=== PATIENT | female | born 1965 | race Caucasian/White ===

== ENCOUNTER 2019-03-04 04:33 | Emergency (ER) | payer BC ==
[~2019-03-04] VITALS: Ht 154.9 cm; Wt 90.7 kg
[~2019-03-04 04:33] MED LIST: CITA10S PO; GLIP5 PO; LANS15EC PO; LEVSOD88 PO; Lisinopril2.5 MG; SITA25T2 PO; Ultram50 MG PO; XARELTO20 MG PO; Zofran Odt4 MG SL
[2019-03-04 04:54] LABS: BASOPHILS ABSOLUTE AUTO 0.08 K/mm3 (0.00-0.23); BASOPHILS PERCENT AUTO 0 % (0-2); EOSINOPHILS ABSOLUTE AUTO 6.03 K/mm3 (0.00-0.68); EOSINOPHILS PERCENT AUTO 25 % (0-6); Hemoglobin 12.5 g/dL (11.5-16.0); IMMATURE GRAN ABSOLUTE AUTO 0.34 K/mm3 (0.00-0.10); IMMATURE GRAN PERCENT AUTO 1 % (0-1); LYMPHOCYTES ABSOLUTE AUTO 6.29 K/mm3 (0.84-5.20); LYMPHOCYTES PERCENT AUTO 26 % (21-46); MONOCYTES ABSOLUTE AUTO 0.79 K/mm3 (0.16-1.47); MONOCYTES PERCENT AUTO 3 % (4-13); Mean Corpuscular HGB 25.9 pg (26.0-34.0); Mean Corpuscular HGB Conc 31.3 g/dL (31.5-36.5); Mean Corpuscular Volume 83 fL (80-100); Mean Platelet Volume 9.3 fL (9.1-12.4); NEUTROPHILS ABSOLUTE AUTO 10.37 K/mm3 (1.96-9.15); NEUTROPHILS PERCENT AUTO 44 % (41-73); Platelet Count 495 K/mm3 (150-400); RDW Standard Deviation 47.8 fL (35.1-46.3); Red Blood Cell Count 4.83 M/mm3 (3.80-5.20)
[2019-03-04 05:14] LABS: Alanine Aminotransfer (ALT/SGP 25 U/L (12-78); Albumin, Blood 3.4 g/dL (3.4-5.0); Albumin/Globulin Ratio 0.7 (0.8-1.8); Alk Phos 141 U/L (50-136); Anion Gap 9 mmol/L (6-16); Aspartate Aminotrans (AST/SGOT 21 U/L (12-37); Bilirubin, Total 0.2 mg/dL (0.1-1.0); Blood Urea Nitrogen 18 mg/dL (8-24); Bun/Creatinine Ratio 21.5 (12.0-20.0); CO2, Blood 25 mmol/L (21-32); Calcium, Blood 9.4 mg/dL (8.5-10.1); Chloride, Blood 104 mmol/L (98-108); Creatinine, Blood 0.84 mg/dL (0.40-1.00); Globulin, Blood 4.7 g/dL (2.2-4.0); Glomerular Filtration Rate >60 (60-); Glucose, Blood 189 mg/dL (70-99); Magnesium, Blood 1.8 mg/dL (1.6-2.4); Potassium, Blood 3.7 mmol/L (3.5-5.5); Sodium, Blood 138 mmol/L (136-145); Total Protein, Blood 8.1 g/dL (6.4-8.2); Troponin I <0.015 ng/mL (0.000-0.040)
[2019-03-04 06:43] LABS: Source, Urine Clean Catch
[2019-03-04 06:45] LABS: Bilirubin, Urine Neg (Neg); Blood, Urine 1+ (Neg); Glucose Qualitative, Urine Neg (Neg); Ketones, Urine Neg (Neg); Leukocyte Esterase, Urine 2+ (Neg); Nitrite, Urine Neg (Neg); Protein, Urine 1+ (Neg); Urobilinogen, Urine NORM (Normal)
[2019-03-04 06:47] LABS: Appearance, Urine Clear (Clear); Color, Urine Yellow (P-Yellow)
[2019-03-04 06:53] LABS: Red Blood Cells, Urine 0-2 /hpf (0-2)
[2019-03-04 06:54] LABS: Bacteria Many /hpf; Mucus Light ({null, 0-Heavy}); Squamous Epithelial Cells Few /hpf (Few)
[2019-03-04] MEDS ORDERED: PROM25 PO (08:17)
== END 2019-03-04 08:32 | disposition home or self-care (01) ==
LOC: ER 04:33
PROVIDERS: Emergency Medicine
DX: K52.9 Noninfective gastroenteritis and colitis, unspecified (principal); I10 Essential (primary) hypertension; E11.9 Type 2 diabetes mellitus without complications; Z86.718 Personal history of other venous thrombosis and embolism; Z79.84 Long term (current) use of oral hypoglycemic drugs; Z79.01 Long term (current) use of anticoagulants; Z79.899 Other long term (current) drug therapy
CPT/HCPCS: 36415; 74176; 76705; 80053; 81001; 83605; 83690; 83735; 84145; 84484; 85025; 87040; 87086; 93005; 93010; 96361; 96374; 96375; 99284-25; J1170; J2405; J2550; J7030

== ENCOUNTER 2019-04-27 18:29 | Emergency (ER) | payer BC ==
[~2019-04-27] VITALS: Ht 154.9 cm; Wt 115.7 kg
[~2019-04-27 18:29] MED LIST changes: +PROM25 PO
[2019-04-27 19:01] LABS: BASOPHILS ABSOLUTE AUTO 0.04 K/mm3 (0.00-0.23); BASOPHILS PERCENT AUTO 0 % (0-2); EOSINOPHILS ABSOLUTE AUTO 0.97 K/mm3 (0.00-0.68); EOSINOPHILS PERCENT AUTO 7 % (0-6); Hemoglobin 12.3 g/dL (11.5-16.0); IMMATURE GRAN ABSOLUTE AUTO 0.08 K/mm3 (0.00-0.10); IMMATURE GRAN PERCENT AUTO 1 % (0-1); LYMPHOCYTES ABSOLUTE AUTO 3.52 K/mm3 (0.84-5.20); LYMPHOCYTES PERCENT AUTO 24 % (21-46); MONOCYTES ABSOLUTE AUTO 0.51 K/mm3 (0.16-1.47); MONOCYTES PERCENT AUTO 4 % (4-13); Mean Corpuscular HGB 25.8 pg (26.0-34.0); Mean Corpuscular HGB Conc 30.8 g/dL (31.5-36.5); Mean Corpuscular Volume 84 fL (80-100); NEUTROPHILS PERCENT AUTO 65 % (41-73); RDW Coefficient Variation 15.2 % (11.7-14.2); RDW Standard Deviation 46.3 fL (35.1-46.3); Red Blood Cell Count 4.76 M/mm3 (3.80-5.20); White Blood Cell Count 14.72 K/mm3 (4.00-11.30)
[2019-04-27 19:07] LABS: Mean Platelet Volume 9.6 fL (9.1-12.4)
[2019-04-27 19:21] LABS: Platelet Count 479 K/mm3 (150-400)
[2019-04-27 19:31] LABS: Alanine Aminotransfer (ALT/SGP 26 U/L (12-78); Albumin, Blood 3.7 g/dL (3.4-5.0); Albumin/Globulin Ratio 0.8 (0.8-1.8); Alk Phos 116 U/L (50-136); Anion Gap 9 mmol/L (6-16); Aspartate Aminotrans (AST/SGOT 25 U/L (12-37); Bilirubin, Total 0.2 mg/dL (0.1-1.0); Blood Urea Nitrogen 17 mg/dL (8-24); Bun/Creatinine Ratio 21.4 (12.0-20.0); CO2, Blood 25 mmol/L (21-32); Calcium, Blood 9.6 mg/dL (8.5-10.1); Chloride, Blood 99 mmol/L (98-108); Globulin, Blood 4.4 g/dL (2.2-4.0); Glomerular Filtration Rate >60 (60-); Glucose, Blood 247 mg/dL (70-99); Potassium, Blood 3.9 mmol/L (3.5-5.5); Sodium, Blood 133 mmol/L (136-145); Total Protein, Blood 8.1 g/dL (6.4-8.2)
[2019-04-27 20:42] LABS: Source, Urine Clean Catch
[2019-04-27 20:44] LABS: Bilirubin, Urine Neg (Neg); Blood, Urine Neg (Neg); Glucose Qualitative, Urine Neg (Neg); Ketones, Urine Neg (Neg); Leukocyte Esterase, Urine Neg (Neg); Nitrite, Urine Neg (Neg); Protein, Urine Neg (Neg); Urobilinogen, Urine NORM (Normal)
[2019-04-27 20:47] LABS: Appearance, Urine Clear (Clear); Color, Urine Yellow (P-Yellow)
[2019-04-27] MEDS ORDERED: ONDA4ODT MM (21:30)
[2019-04-28] MEDS ORDERED: ESOM20 PO (13:12)
[2019-04-28] MEDS ORDERED: ZESTORETIC 20-251 EA PO (13:22)
[2019-04-28] MEDS ORDERED: METF500C PO (13:23)
[2019-04-28] MEDS ORDERED: BASAGLAR K100 UNIT/1 SC (13:24)
[2019-04-28] MEDS ORDERED: Synthroid88 MCG PO (13:39)
== END 2019-04-27 21:50 | disposition home or self-care (01) ==
LOC: ER 18:29
PROVIDERS: Physician Assistant
DX: K80.80 Other cholelithiasis without obstruction (principal); I10 Essential (primary) hypertension; E03.9 Hypothyroidism, unspecified; E11.9 Type 2 diabetes mellitus without complications; K21.9 Gastro-esophageal reflux disease without esophagitis; Z86.718 Personal history of other venous thrombosis and embolism; Z79.899 Other long term (current) drug therapy; Z79.01 Long term (current) use of anticoagulants
CPT/HCPCS: 76705; 80053; 81003; 83690; 85025; 96361; 96374; 96375; 96376; 99284-25; A9270; A9270-GY; J2405; J3010; J7030

== ENCOUNTER 2019-04-28 07:43 | Inpatient (IN) | payer BC ==
[~2019-04-28] VITALS: Ht 154.9 cm; Wt 119.4 kg
[~2019-04-28 07:43] MED LIST changes: +ONDA4ODT MM
[2019-04-28 08:34] LABS: Hemoglobin 11.6 g/dL (11.5-16.0); Mean Corpuscular HGB 25.6 pg (26.0-34.0); Mean Corpuscular HGB Conc 31.4 g/dL (31.5-36.5); Mean Corpuscular Volume 82 fL (80-100); Mean Platelet Volume 9.4 fL (9.1-12.4); Platelet Count 521 K/mm3 (150-400); RDW Coefficient Variation 15.5 % (11.7-14.2); RDW Standard Deviation 46.5 fL (35.1-46.3); Red Blood Cell Count 4.53 M/mm3 (3.80-5.20); White Blood Cell Count 15.67 K/mm3 (4.00-11.30)
[2019-04-28 08:56] LABS: BASOPHILS PERCENT MAN 0 % (0-2); EOSINOPHILS ABSOLUTE MAN 0.78 K/mm3 (0.00-0.68); EOSINOPHILS PERCENT MAN 5 % (0-6); LYMPHOCYTES ABSOLUTE MAN 4.54 K/mm3 (0.84-5.20); LYMPHOCYTES PERCENT MAN 29 % (21-46); MONOCYTES ABSOLUTE MAN 0.94 K/mm3 (0.16-1.47); MONOCYTES PERCENT MAN 6 % (4-13); SEG NEUTROPHILS PERCENT MAN 60 % (41-73); TOTAL CELLS COUNTED 100
[2019-04-28 08:57] LABS: Alanine Aminotransfer (ALT/SGP 23 U/L (12-78); Albumin, Blood 3.4 g/dL (3.4-5.0); Albumin/Globulin Ratio 0.9 (0.8-1.8); Alk Phos 103 U/L (50-136); Anion Gap 5 mmol/L (6-16); Aspartate Aminotrans (AST/SGOT 19 U/L (12-37); Bilirubin, Total 0.4 mg/dL (0.1-1.0); Blood Urea Nitrogen 13 mg/dL (8-24); CO2, Blood 27 mmol/L (21-32); Calcium, Blood 9.1 mg/dL (8.5-10.1); Chloride, Blood 104 mmol/L (98-108); Creatinine, Blood 0.82 mg/dL (0.40-1.00); Globulin, Blood 3.9 g/dL (2.2-4.0); Glomerular Filtration Rate >60 (60-); Glucose, Blood 217 mg/dL (70-99); Potassium, Blood 3.6 mmol/L (3.5-5.5); Sodium, Blood 136 mmol/L (136-145); Total Protein, Blood 7.3 g/dL (6.4-8.2)
--- NOTE | 2019-04-28 12:17 | NUR ---
PT TO ROOM FROM ED UP TO RESTROOM AT THIS TIME. INDEPENDENT IN ROOM.
[2019-04-28] MEDS ORDERED: ESOM20 PO (13:12)
[2019-04-28] MEDS ORDERED: ZESTORETIC 20-251 EA PO (13:22)
[2019-04-28] MEDS ORDERED: METF500C PO (13:23)
[2019-04-28] MEDS ORDERED: BASAGLAR K100 UNIT/1 SC (13:24)
[2019-04-28] MEDS ORDERED: Synthroid88 MCG PO (13:39)
--- NOTE | 2019-04-28 17:30 | NUR ---
SUMMARY PT ARRIVED TO UNIT FROM ED THIS AFTERNOON. MEDICATED ONCE PER ORDERS FOR ABD PAIN. PT REPORTS PAIN TOLERABLE AFTER PAIN MEDS. TEARFUL AT TIMES. VSS. HEPARIN RUNNING PER PHARMACY ORDERS. USES CALL LIGHT APPROPRIATELY.
[2019-04-29 06:37] LABS: BASOPHILS ABSOLUTE AUTO 0.04 K/mm3 (0.00-0.23); BASOPHILS PERCENT AUTO 0 % (0-2); EOSINOPHILS ABSOLUTE AUTO 0.34 K/mm3 (0.00-0.68); EOSINOPHILS PERCENT AUTO 2 % (0-6); Hematocrit 32.2 % (33.0-51.0); IMMATURE GRAN ABSOLUTE AUTO 0.07 K/mm3 (0.00-0.10); IMMATURE GRAN PERCENT AUTO 0 % (0-1); LYMPHOCYTES PERCENT AUTO 23 % (21-46); MONOCYTES ABSOLUTE AUTO 0.47 K/mm3 (0.16-1.47); MONOCYTES PERCENT AUTO 3 % (4-13); Mean Corpuscular HGB 26.2 pg (26.0-34.0); Mean Corpuscular HGB Conc 31.1 g/dL (31.5-36.5); Mean Corpuscular Volume 84 fL (80-100); Mean Platelet Volume 9.3 fL (9.1-12.4); NEUTROPHILS ABSOLUTE AUTO 11.39 K/mm3 (1.96-9.15); NEUTROPHILS PERCENT AUTO 71 % (41-73); Platelet Count 441 K/mm3 (150-400); RDW Coefficient Variation 15.5 % (11.7-14.2); RDW Standard Deviation 47.4 fL (35.1-46.3); Red Blood Cell Count 3.82 M/mm3 (3.80-5.20); White Blood Cell Count 16.01 K/mm3 (4.00-11.30)
[2019-04-29 06:55] LABS: Alanine Aminotransfer (ALT/SGP 20 U/L (12-78); Albumin, Blood 2.9 g/dL (3.4-5.0); Albumin/Globulin Ratio 0.8 (0.8-1.8); Alk Phos 95 U/L (50-136); Anion Gap 7 mmol/L (6-16); Aspartate Aminotrans (AST/SGOT 16 U/L (12-37); Bilirubin, Total 0.2 mg/dL (0.1-1.0); Blood Urea Nitrogen 12 mg/dL (8-24); Bun/Creatinine Ratio 14.2 (12.0-20.0); CO2, Blood 27 mmol/L (21-32); Calcium, Blood 8.3 mg/dL (8.5-10.1); Chloride, Blood 105 mmol/L (98-108); Creatinine, Blood 0.85 mg/dL (0.40-1.00); Globulin, Blood 3.7 g/dL (2.2-4.0); Glomerular Filtration Rate >60 (60-); Glucose, Blood 216 mg/dL (70-99); Potassium, Blood 3.8 mmol/L (3.5-5.5); Sodium, Blood 139 mmol/L (136-145); Total Protein, Blood 6.6 g/dL (6.4-8.2)
--- NOTE | 2019-04-29 07:40 | NUR ---
PT VSS T/O NIGHT. PAIN MGD PER EMAR W/REP RELIEF. PT DID HAVE A COUPLE EPISODES OF N/V, REP RELIEF AFTER NAUSEA MEDS GIVEN. PT NPO POST MIDNIGHT FOR PLAN FOR OR THIS AM. HEPARIN GTT STOPPED AT 0615 PER PHARMACY ORDERS. PT USING CALL LIGHT FOR ASSISTANCE, REP GIVEN TO ONCOMING RN.
--- NOTE | 2019-04-29 10:01 | NUR ---
PT TO SURGERY
--- NOTE | 2019-04-29 10:50 | NUR ---
04/29/19 1050 Mariana Loomis PT RECIEVED SCHEDULED ANTIBIOTICS PRIOR TO ARRIVING AT OR.
--- NOTE | 2019-04-29 13:33 | NUR ---
PT BACK TO ROOM FROM PACU RESTING W/EYES CLOSED. BREATHING E/U. CALL LIGHT IN REACH.
--- NOTE | 2019-04-29 17:41 | NUR ---
SUMMARY PT S/P LAP MATILDE THIS SHIFT. VSS. TITRATED O2 DOWN TO 2L, SATS 94%. PT AMBULATED IN TELLEZ AND VOIDING. TOLERATED JELLO AND CRACKERS, ORDERED ADA DINNER. PAIN CONTROLLED PER EMAR. PAS IN PLACE. CALL LIGHT IN REACH.
--- NOTE | 2019-04-30 05:42 | NUR ---
POD 1 S/P LAP MATILDE. PT VSS T/O NIGHT. DRESSINGS CDI. PAIN MGD W/2 NORCO W/REP RELIEF. PT YEYO REG PO, NO C/O N/V. PT VOIDING URINE W/O DIFFICULTY, REP NO FLATUS YET. PT AMB IN HALLS, YEYO WELL. PT USING CALL LIGHT FOR ASSISTANCE, WILL CONT TO MONITOR UNTIL REP GIVEN TO ONCOMING RN.
--- NOTE | 2019-04-30 07:20 | NUR ---
recvd report from previous shift RN Diya pt lying in bed, a/o x 4, pleasant/cooperative. pt gave permission for SN to assist this RN. call light within reach, bed in lowest position, bed rails up x 2
[2019-04-30] MEDS ORDERED: ACET325 PO (11:36)
[2019-04-30] MEDS ORDERED: HYDR1TAB94 PO (11:45)
--- NOTE | 2019-04-30 13:30 | NUR ---
provided pt with printed materials, discharge instruction and teaching, prescription for post surgical analgesia, peripher IVs removed WNL. pt states understanding. pt's will arrive to transport pt home via vehicle. pt requests wheelchair for her to push her out with belongings on her lap.
== END 2019-04-30 13:49 | disposition home or self-care (01) | DRG 418 ==
LOC: ER 07:43 → SURS 10:04
PROVIDERS: Emergency Medicine; Nurse Practitioner Acute Care; Surgery; ADMIT Internal Medicine
PROC: BF03YZZ Plain Radiography of Gallbladder and Bile Ducts using Other Contrast (ICD-10-PCS; 2019-04-29)
PROC: 0FT44ZZ Resection of Gallbladder, Percutaneous Endoscopic Approach (ICD-10-PCS; principal; 2019-04-29 10:30)
DX: K80.20 Calculus of gallbladder without cholecystitis without obstruction (principal); D68.2 Hereditary deficiency of other clotting factors; Z68.42 Body mass index [BMI] 45.0-49.9, adult; E11.9 Type 2 diabetes mellitus without complications; K21.9 Gastro-esophageal reflux disease without esophagitis; I10 Essential (primary) hypertension; E03.9 Hypothyroidism, unspecified; F32.9 Major depressive disorder, single episode, unspecified; E66.9 Obesity, unspecified; Z86.718 Personal history of other venous thrombosis and embolism; Z79.84 Long term (current) use of oral hypoglycemic drugs; Z79.899 Other long term (current) drug therapy; Z79.01 Long term (current) use of anticoagulants
CPT/HCPCS: 36415; 74300; 80053; 82947; 83690; 85025; 85730; 88304; 90686; 94660; 94762; 96361; 96374; 96375; 99284-25; A9270; A9270-GY; C1729; C1751; C9113; J1100; J1170; J1644; J1885; J2250; J2270; J2405; J2543; J2704; J2710; J2765; J3010; J7030

== ENCOUNTER 2021-07-01 20:04 | Emergency (ER) | payer BC ==
[~2021-07-01] VITALS: Ht 154.9 cm; Wt 115.7 kg
[~2021-07-01 20:04] MED LIST changes: +ACET325 PO; +BASAGLAR K100 UNIT/1 SC; +ESOM20 PO; +HYDR1TAB94 PO; +METF500C PO; +Synthroid88 MCG PO; +ZESTORETIC 20-251 EA PO
== END 2021-07-01 21:00 | disposition home or self-care (01) ==
LOC: ER 20:04
DX: M17.12 Unilateral primary osteoarthritis, left knee (principal); E03.9 Hypothyroidism, unspecified; E11.9 Type 2 diabetes mellitus without complications; K21.9 Gastro-esophageal reflux disease without esophagitis; I10 Essential (primary) hypertension; Z79.899 Other long term (current) drug therapy
CPT/HCPCS: 73562-LT

== ENCOUNTER 2023-12-26 15:38 | Emergency (ER) | payer BC ==
[~2023-12-26] VITALS: Ht 157.5 cm; Wt 99.8 kg
[2023-12-26 15:42] VITALS: BP 139/71
== END 2023-12-26 16:45 | disposition home or self-care (01) ==
LOC: ER 15:38
DX: M79.89 Other specified soft tissue disorders (principal); M79.605 Pain in left leg; I10 Essential (primary) hypertension; E11.9 Type 2 diabetes mellitus without complications; K21.9 Gastro-esophageal reflux disease without esophagitis; E03.9 Hypothyroidism, unspecified; Z79.84 Long term (current) use of oral hypoglycemic drugs; Z79.4 Long term (current) use of insulin; Z79.899 Other long term (current) drug therapy
CPT/HCPCS: 93971; 99283-25

== ENCOUNTER → 2025-06-15 | Outpatient (CLI) | payer BC ==
[~2025-06-15] MED LIST changes: +BENZ100A PO
[2025-06-15 06:43] LABS: BASOPHILS ABSOLUTE AUTO 0.05 K/mm3 (0.00-0.23); BASOPHILS PERCENT AUTO 0 % (0-2); EOSINOPHILS ABSOLUTE AUTO 0.56 K/mm3 (0.00-0.68); EOSINOPHILS PERCENT AUTO 4 % (0-6); Hematocrit 35.1 % (33.0-51.0); Hemoglobin 10.9 g/dL (11.5-16.0); IMMATURE GRAN ABSOLUTE AUTO 0.05 K/mm3 (0.00-0.10); IMMATURE GRAN PERCENT AUTO 0 % (0-1); LYMPHOCYTES ABSOLUTE AUTO 3.15 K/mm3 (0.84-5.20); LYMPHOCYTES PERCENT AUTO 25 % (21-46); MONOCYTES ABSOLUTE AUTO 0.58 K/mm3 (0.16-1.47); MONOCYTES PERCENT AUTO 5 % (4-13); Mean Corpuscular HGB Conc 31.1 g/dL (31.5-36.5); Mean Corpuscular Volume 82 fL (80-100); NEUTROPHILS ABSOLUTE AUTO 8.22 K/mm3 (1.96-9.15); NEUTROPHILS PERCENT AUTO 65 % (41-73); NRBC ABSOLUTE 0.00 K/mm3 (0.00-0.02); NRBC Auto 0.0 /100 WBC (0.0-0.2); Platelet Count 409 K/mm3 (150-400); RDW Coefficient Variation 15.8 % (11.7-14.2); RDW Standard Deviation 47.1 fL (35.1-46.3)
[2025-06-15 07:39] LABS: Alanine Aminotransfer (ALT/SGP 31.0 U/L (12-78); Albumin, Blood 3.3 g/dL (3.4-5.0); Albumin/Globulin Ratio 0.8 (0.8-1.8); Anion Gap 9.0 mmol/L (3-11); Aspartate Aminotrans (AST/SGOT 20.0 U/L (12-37); Bilirubin, Total 0.4 mg/dL (0.1-1.0); Blood Urea Nitrogen 24.0 mg/dL (8-24); CO2, Blood 27.0 mmol/L (21-32); Calcium, Blood 9.2 mg/dL (8.5-10.1); Chloride, Blood 105.0 mmol/L (98-108); Creatinine, Blood 1.0 mg/dL (0.40-1.00); Ferritin, Serum 19.0 ng/mL (8-252); Globulin, Blood 4.2 g/dL (2.2-4.0); Glucose, Blood 125.0 mg/dL (70-99); Lactate Dehydrogenase (Ld),Bld 200.0 U/L (100-240); Potassium, Blood 4.0 mmol/L (3.5-5.5); Sodium, Blood 137.0 mmol/L (136-145); Total Iron Binding Capacity 362.0 ug/dL (250-450); Total Protein, Blood 7.5 g/dL (6.4-8.2)
[2025-06-17 22:55] LABS: KAPPA QNT FREE LIGHT CHAINS 38.86 mg/L (3.30-19.40); KAPPA/LAMBDA FREE LIGHT CH RAT 1.27 (0.26-1.65); LAMBDA QNT FREE LIGHT CHAINS 30.65 mg/L (5.71-26.30)
[2025-06-18 07:45] LABS: RHEUMATOID FACTOR <10 IU/mL (0-14)
[2025-06-18 22:24] LABS: ALPHA 1 GLOBULIN 0.31 g/dL (0.19-0.46); ALPHA 2 GLOBULIN 0.78 g/dL (0.48-1.05); BETA GLOBULIN 0.98 g/dL (0.48-1.10); GAMMA 1.27 g/dL (0.62-1.51); IMMUNOFIXATION IFE Done; TOTAL PROTEIN, SERUM 7.2 g/dL (6.3-8.2)
[2025-06-22 08:07] LABS: ANTINUCLEAR AB (ANA),HEP-2,IGG Detected (<1:80); CYTOPLASM PATTERN AMA; CYTOPLASMIC TITER 1:80
== END ==
LOC: LAB 06-14 08:00 → LAB FUT 06-14 08:00 → LAB 08:00
PROVIDERS: Nurse Practitioner
DX: D75.839 Thrombocytosis, unspecified (principal); D72.829 Elevated white blood cell count, unspecified; D64.9 Anemia, unspecified
CPT/HCPCS: 80053; 81270; 82728; 83521; 83540; 83550; 83615; 84155; 84165; 85025; 85060; 85651; 86039; 86334; 86431